=== PATIENT | female | born 1995 | race Caucasian/White ===

== ENCOUNTER 2020-09-05 14:45 | Inpatient (IN) | payer SELFPAY ==
[~2020-09-05] VITALS: Ht 170.2 cm; Wt 81.0 kg
--- NOTE | 2020-09-05 15:43 | RAD ---
Examination: 3 views of the left ankle and left tibia and fibula HISTORY: History of fracture COMPARISON: None available Findings: There is nondisplaced fracture of the medial malleolus with oblique fracture of the lateral malleolus extending superiorly from the ankle joint and minimal displaced fracture of the posterior malleolus extending intra-articularly. Moderate soft tissue swelling identified about the ankle joint. The prox imal and midportion of the tibia and fibula grossly unremarkable. IMPRESSION: Trimalleolar fracture. Electronically signed by: Ganesh Armstrong MD (09/05/2020 3:40 PM) [id number]
[2020-09-05] MEDS ORDERED: MORPHINE SULFATE 10 MG/ML VIAL. IV ONE (16:45)
--- NOTE | 2020-09-05 17:16 | ED.ADGEN ---
Past Medical History Past Medical History: No Pertinent History Past Surgical History: Tonsillectomy, Other Additional Past Surgical Histo: rhinoplasty Smoking Status: Never Smoker Alcohol Use: None General Adult EDM: Chief Complaint: LOWEREXTREMITY INJURY HPI: HPI: Patient is 25-year-old previous healthy female who presents to the emergency room complaining of severe left ankle pain. Patient was playing with some children and running in the grass when her foot slipped and went sideways. She states she try to get up and walk on it and her foot would not bear her weight and her ankle turned sideways. She is having a throbbing pain in her ankle. She denies any numbness. She denies any other injuries. Review of Systems: Review of Systems: Complete ROS is negative unless otherwise documented in HPI Current Medications: Current Medications Medications (Trade) Dose Ordered Sig/Ave Start Time Stop Time Status Last Admin Dose Admin Morphine Sulfate (Morphine Sulfate) 4 mg Q4H PRN 09/05/20 17:15 09/06/20 17:14 UNV Allergies: Allergies: Allergies Coded Allergies Type Severity Reaction Last Updated Verified No Known Drug Allergies 09/05/20 No Physical Exam: PE: General: Awake, alert, NAD. Well Nourished, well hydrated. Cooperative HEENT: Atraumatic, EOMI, PERRL, airway patent, moist oral mucosa, no nasal septal hematoma, no facial crepitus or deformity Neck: Supple, trachea midline, no C-spine tenderness Respiratory: CTA bilaterally, normal effort, no wheezing/crackles, no crepitus CV: RRR, no murmur, cap refill <2, 2+ bilateral radial/DP pulses GI: Soft, nondistended, nontender, no masses MSK: Left ankle deformity, diffuse swelling, no open wounds. 2+ DP pulse, intact sensation distal to injury, intact range of motion, pelvis stable and nontender Skin: Warm, dry, intact Neuro: A&O x3, speech NL, sensory and motor grossly intact, no focal deficits Psych: Normal affect, normal mood, not suicidal or homicidal Current Patient Data: Labs: Laboratory Tests Test 09/05/20 16:25 SARS-CoV-2 Antigen (Rapid) Negative (NEGATIVE) Vital Signs: Vital Signs Date Time Temp Pulse Resp B/P (MAP) Pulse Ox O2 Delivery O2 Flow Rate FiO2 09/05/20 16:55 18 98 09/05/20 14:45 99.1 86 130/71 (90) Room Air 99.1 EKG: EKG: [] Heart Score: C/O Chest Pain: N/A Risk Factors: Risk Factors: DM, Current or recent (<one month) smoker, HTN, HLP, family history of CAD, obesity. Risk Scores: Score 0 - 3: 2.5% MACE over next 6 weeks - Discharge Home Score 4 - 6: 20.3% MACE over next 6 weeks - Admit for Clinical Observation Score 7 - 10: 72.7% MACE over next 6 weeks - Early Invasive Strategies Radiology/Procedures: Radiology/Procedures: [] Course & Med Decision Making: Course & Med Decision Making Pertinent Labs and Imaging studies reviewed. (See chart for details) Patient is a 25-year-old female who presents to the emergency room with left ankle injury. X-ray was done and patient has a nondisplaced trimalleolar fracture. I have discussed the case with Dr. Willis the on-call orthopedic surgeon who would like to do surgery on this tomorrow morning. Patient will be admitted and Covid swab will be done. Dragon Disclaimer: Dragon Disclaimer: This electronic medical record was generated, in whole or in part, using a voice recognition dictation system. Departure Departure Impression: Primary Impression: Trimalleolar fracture of ankle, closed Disposition: ADMITTED INPATIENT Condition: STABLE Referrals: NO PCP (PCP) ANJELICA POWERS MD Sep 05, 2020 17:15
[2020-09-05] MEDS: MORPHINE SULFATE 4 MG/ML VIAL. IV PRN ×2 (20:44→23:08)
[2020-09-05 21:30] VITALS: BP 128/60
[2020-09-05 23:00] VITALS: BP 117/59
[2020-09-06] VITALS (10 sets, daily range): BP systolic 99–117; BP diastolic 54–72
--- NOTE | 2020-09-06 01:29 | NUR ---
Patient arrived to floor at 2119. Report was received from Ramez in the Emergency room. Patient has minimal complaints of pain at this time. Patient resting comfortable in bed at this time. Patient call light placed within reach and bed placed in the lowest position. Will continue to monitor the patient at this time.
[2020-09-06] MEDS: MORPHINE SULFATE 4 MG/ML VIAL. IV PRN (03:12)
[2020-09-06] MEDS ORDERED: MORPHINE SULFATE 2 MG/ML VIAL. IV PRN (06:30)
[2020-09-06] MEDS ORDERED: ONDANSETRON PF 4 MG/2 ML VIAL. IVP PRN (06:30)
[2020-09-06] MEDS: IV NORMAL SALINE 1000ML BAG 1,000 ML IV SCH ×2 (08:35→20:20)
--- NOTE | 2020-09-06 08:41 | PDOC1 ---
History and Physical Date of Admission Date of Admission DATE: 09/06/20 TIME: 08:40 Identification/Chief Complaint Chief Complaint FALL WITH LEFT ANKLE FRACTURE History of Present Illness History of Present Illness 25-year-old previous healthy female who presents to the emergency room complaining of severe left ankle pain. Patient was playing with some children and running in the grass when her foot slipped and went sideways. She states she try to get up and walk on it and her foot would not bear her weight and her ankle turned sideways. She is having a throbbing pain in her ankle. She denies any numbness. She denies any other injuries. Past Medical History Past Medical History Past Medical History Past Medical History Past Medical History: No Pertinent History Past Surgical History: Tonsillectomy, Other Additional Past Surgical Histo: rhinoplasty Smoking Status: Never Smoker Alcohol Use: None FHX HTN Family History Family History: Hypertension Social History Smoke: No ALCOHOL: none Drugs: None Current Problem List Problem List Problems Medical Problems: (1) Trimalleolar fracture of ankle, closed Status: Acute Current Medications Current Medications Current Medications Morphine Sulfate (Morphine Sulfate) 5 mg 1X ONCE IV Last administered on 09/05/20at 16:55; Start 09/05/20 at 16:45; Stop 09/05/20 at 16:49; Status DC Morphine Sulfate (Morphine Sulfate) 4 mg PRN Q4HRS PRN IV PAIN Last administered on 09/06/20at 03:12; Start 09/05/20 at 17:15; Stop 09/06/20 at 06:38; Status DC Sodium Chloride 1,000 ml @ 75 mls/hr [id number] IV ; Start 09/06/20 at 07:00 Morphine Sulfate (Morphine Sulfate) 2 mg PRN Q2HR PRN IV SEVERE PAIN 7-10; Start 09/06/20 at 06:30 Ondansetron HCl (Zofran) 4 mg PRN Q6HRS PRN IVP NAUSEA/VOMITING 1ST CHOICE; Start 09/06/20 at 06:30 Fentanyl Citrate (Fentanyl 2ml Vial) 25 mcg PRN Q5MIN PRN IVP MILD PAIN 1-3; Start 09/06/20 at 08:45; Stop 09/07/20 at 08:44; Status UNV Fentanyl Citrate (Fentanyl 2ml Vial) 50 mcg PRN Q5MIN PRN IVP MODERATE PAIN 4- 6; Start 09/06/20 at 08:45; Stop 09/07/20 at 08:44; Status UNV Morphine Sulfate (Morphine Sulfate) 1 mg PRN Q10MIN PRN IVP SEVERE PAIN 7-10; Start 09/06/20 at 08:45; Stop 09/07/20 at 08:44; Status UNV Ringer's Solution 1,000 ml @ 30 mls/hr Q24H IV ; Start 09/06/20 at 08:45; Stop 09/06/20 at 20:44; Status UNV Hydromorphone HCl (Dilaudid) 0.5 mg PRN Q10MIN PRN IVP SEVERE PAIN 7-10, 2nd CHOICE; Start 09/06/20 at 08:45; Stop 09/07/20 at 08:44; Status UNV Prochlorperazine Edisylate (Compazine) 5 mg PACU PRN PRN IVP NAUSEA, MRX1; Start 09/06/20 at 08:45; Stop 09/07/20 at 08:44; Status UNV Allergies Allergies: Coded Allergies: No Known Drug Allergies (Unverified , 09/05/20) ROS General: No: Chills, Night Sweats, Fatigue, Malaise, Appetite, Other PSYCHOLOGICAL ROS: No: Anxiety, Behavioral Disorder, Concentration difficultie, Decreased libido, Depression, Disorientation, Hallucinations, Hostility, Irritablity, Memory difficulties, Mood Swings, Obsessive thoughts, Physical abuse, Sexual abuse, Sleep disturbances, Suicidal ideation, Other Eyes: No Blurry vision, No Decreased vision, No Double vision, No Dry eyes, No Excessive tearing, No Eye Pain, No Itchy Eyes, No Loss of vision, No Photophobia, No Scotomata, No Uses contacts, No Uses glasses, No Other HEENT: No: Heacaches, Visual Changes, Hearing change, Nasal congestion, Nasal discharge, Oral lesions, Sinus pain, Sore Throat, Epistaxis, Sneezing, Snoring, Tinnitus, Vertigo, Vocal changes, Other ALLERGY AND IMMUNOLOGY: No: Hives, Insect Bite Sensitivity, Itchy/Watery Eyes, Nasal Congestion, Post Nasal Drip, Seasonal Allergies, Other Hematological and Lymphatic: No: Bleeding Problems, Blood Clots, Blood Transfusions, Brusing, Night Sweats, Pallor, Swollen Lymph Nodes, Other ENDOCRINE: No: Breast Changes, Galactorrhea, Hair Pattern Changes, Hot Flashes, Malaise/lethargy, Mood Swings, Palpitations, Polydipsia/polyuria, Skin Changes, Temperature Intolerance, Unexpected Weight Changes, Other Breast: No New/Changing Breast Lumps, No Nipple changes, No Nipple discharge, No Other Respiratory: No: Cough, Hemoptysis, Orthopnea, Pleuritic Pain, Shortness of breath, SOB with excertion, Sputum Changes, Stridor, Tachypnea, Wheezing, Other Cardiovascular: No Chest Pain, No Palpitations, No Orthopnea, No Paroxysmal Noc. Dyspnea, No Edema, No Lt Headedness, No Other Gastrointestinal: No Nausea, No Vomiting, No Abdominal Pain, No Diarrhea, No Constipation, No Melena, No Hematochezia, No Other Genitourinary: No Dysuria, No Frequency, No Incontinence, No Hematuria, No Retention, No Discharge, No Urgency, No Pain, No Flank Pain, No Other, No , No , No , No , No , No , No Musculoskeletal: Yes Gait Disturbance, Yes Joint Pain, Yes Joint Stiffness Neurological: Yes Gait Disturbance; No Behavorial Changes, No Bowel/Bladder ControlChng, No Confusion, No Dizziness, No Headaches, No Impaired Coord/balance, No Memory Loss, No Numbness/Tingling, No Seizures, No Speech Problems, No Tremors, No Visual Changes, No Weakness, No Other Skin: No Dry Skin, No Eczema, No Hair Changes, No Lumps, No Mole Changes, No Mottling, No Nail Changes, No Pruritus, No Rash, No Skin Lesion Changes, No Other, No Acne Physical Exam General: Alert, Oriented X3, Cooperative, No acute distress, mild distress HEENT: Atraumatic, PERRLA, EOMI, Mucous membr. moist/pink Lungs: Clear to auscultation, Normal air movement Heart: S1S2, RRR, no thrills, no gallops, no murmurs Breasts: Not examined Abdomen: Normal bowel sounds, Soft Rectal Exam: not examined PELVIC: Examination not indicated Extremities: No cyanosis, No edema, Other (LEFT ANKLE DRESSING DRY ) Skin: No significant lesion Neuro: Normal speech, Normal tone, Sensation intact, Cranial nerves 3-12 NL Psych/Mental Status: Mental status NL, Mood NL Vitals Vitals Vital Signs Date Time Temp Pulse Resp B/P (MAP) Pulse Ox O2 Delivery O2 Flow Rate FiO2 09/06/20 07:16 97.9 67 18 111/56 (74) 98 Room Air 97.9 Labs Labs Laboratory Tests Test 09/05/20 16:25 SARS-CoV-2 Antigen (Rapid) Negative (NEGATIVE) Laboratory Tests Test 09/05/20 16:25 SARS-CoV-2 Antigen (Rapid) Negative (NEGATIVE) Images Images Operative Note Operative Note Operative Note Date of Procedure: September 06, 2020 Pre-Op Diagnosis: Displaced trimalleolar fracture of left lower leg, initial encounter for closed fracture S82.852A Post-Op Diagnosis: same Procedure: Open treatment of trimalleolar ankle fracture, with internal fixation, medial and lateral malleolus, with fixation of posterior lip, CPT 30336, left ankle Anesthesia Type: General Surgeon: Brandon Willis MD Support Dba: KAMILAH Kumar EBL: 50 mL Specimens Obtained: none Drains: none Complications: none Tourniquet time: minutes Tourniquet pressure: 300 mm Hg Implants: Synthes titanium small fragment 3.5 mm Signed PATIENT: LISETET HARDYACCOUNT: [id number] : 1995 LOCATION: ER AGE: 25 SEX: F EXAM STATUS: REG ER ORD. PHYSICIAN: ANJELICA POWERS MD REASON: fracture PROCEDURE: ANKLE LEFT 3V Examination: 3 views of the left ankle and left tibia and fibula HISTORY: History of fracture COMPARISON: None available Findings: There is nondisplaced fracture of the medial malleolus with oblique fracture of the lateral malleolus extending superiorly from the ankle joint and minimal displaced fracture of the posterior malleolus extending intra-articularly. Moderate soft tissue swelling identified about the ankle joint. The proximal and midportion of the tibia and fibula grossly unremarkable. IMPRESSION: Trimalleolar fracture. Electronically signed by: Ganesh Armstrong MD (09/05/2020 3:40 PM) [id number] DICTATED and SIGNED BY: GANESH ARMSTRONG MD DATE: 09/05/20 [id number] VTE Prophylaxis Ordered VTE Prophylaxis Devices: Contraindicated VTE Pharmacological Prophylaxi: Yes Assessment/Plan Assessment/Plan IMPRESSION: Mechanical fall on uneven surface Trimalleolar fracture. plan== ADMIT to OR IV PAIN CONTROL ORTHO CONSULT PT/OT D/W RN Justifications for Admission Other Justification HARLEY RODRIGUEZ MD Sep 06, 2020 08:41
[2020-09-06] MEDS ORDERED: PROCHLORPERAZINE 10 MG/2 ML VIAL. IVP PRN (08:45)
[2020-09-06] MEDS ORDERED: fentaNYL PF VIAL 100 MCG/2 ML VIAL IVP PRN ×2 (08:45)
[2020-09-06] MEDS ORDERED: HYDROmorphone 2 MG/ML VIAL IVP PRN (08:45)
[2020-09-06] MEDS ORDERED: IV RINGERS,LACTATED 1000ML 1,000 ML IV SCH (08:45)
--- NOTE | 2020-09-06 09:47 | PDOC2 ---
CONSULT Date of Consult Date of Consult DATE: 09/06/20 TIME: 09:47 Reason for Consult Reason for Consult: Left ankle fracture Identification/Chief Complaint Chief Complaint Left ankle fracture Source Source: Chart review, Patient History of Present Illness Reason for Visit: This 25-year-old young lady was running outdoors, playing with some kids at her grandfather's house, and tripped and felt her ankle go sideways. She felt things break and several snaps, and the ankle was distorted. She immediately was taken to the emergency room and x-rays show a trimalleolar ankle fracture. She was admitted for surgical stabilization. Past Medical History Past Medical History She had a remote right ankle growth plate fracture and she used crutches at that time but was treated in a cast. She has insomnia for which she uses medical marijuana. Past Surgical History Past Surgical History: No pertinent history Family History Family History Her father has hypertension. A grandmother has a genetic liver disease. A different relative has blockages in the superior and inferior vena cava Social History Social History She lives with her boyfriend and several other roommates. She does not have children. She did serve in the . No Lives: Roommate Current Problem List Problem List Problems Medical Problems: (1) Trimalleolar fracture of ankle, closed Status: Acute Current Medications Current Medications Current Medications Morphine Sulfate (Morphine Sulfate) 5 mg 1X ONCE IV Last administered on 09/05/20at 16:55; Start 09/05/20 at 16:45; Stop 09/05/20 at 16:49; Status DC Morphine Sulfate (Morphine Sulfate) 4 mg PRN Q4HRS PRN IV PAIN Last administered on 09/06/20at 03:12; Start 09/05/20 at 17:15; Stop 09/06/20 at 06:38; Status DC Sodium Chloride 1,000 ml @ 75 mls/hr [id number] IV Last administered on 09/06/20at 08:35; Start 09/06/20 at 07:00 Morphine Sulfate (Morphine Sulfate) 2 mg PRN Q2HR PRN IV SEVERE PAIN 7-10 Last administered on 09/06/20at 08:55; Start 09/06/20 at 06:30 Ondansetron HCl (Zofran) 4 mg PRN Q6HRS PRN IVP NAUSEA/VOMITING 1ST CHOICE Last administered on 09/06/20at 08:35; Start 09/06/20 at 06:30 Fentanyl Citrate (Fentanyl 2ml Vial) 25 mcg PRN Q5MIN PRN IVP MILD PAIN 1-3; Start 09/06/20 at 08:45; Stop 09/07/20 at 08:44 Fentanyl Citrate (Fentanyl 2ml Vial) 50 mcg PRN Q5MIN PRN IVP MODERATE PAIN 4- 6; Start 09/06/20 at 08:45; Stop 09/07/20 at 08:44 Morphine Sulfate (Morphine Sulfate) 1 mg PRN Q10MIN PRN IVP SEVERE PAIN 7-10; Start 09/06/20 at 08:45; Stop 09/07/20 at 08:44 Ringer's Solution 1,000 ml @ 30 mls/hr Q24H IV ; Start 09/06/20 at 08:45; Stop 09/06/20 at 20:44 Hydromorphone HCl (Dilaudid) 0.5 mg PRN Q10MIN PRN IVP SEVERE PAIN 7-10, 2nd CHOICE; Start 09/06/20 at 08:45; Stop 09/07/20 at 08:44 Prochlorperazine Edisylate (Compazine) 5 mg PACU PRN PRN IVP NAUSEA, MRX1; Start 09/06/20 at 08:45; Stop 09/07/20 at 08:44 Allergies Allergies: Coded Allergies: No Known Drug Allergies (Unverified , 09/05/20) ROS General: No: Chills, Night Sweats PSYCHOLOGICAL ROS: YES: Other (Insomnia) Eyes: No Double vision HEENT: No: Heacaches, Sore Throat Hematological and Lymphatic: No: Blood Clots Respiratory: No: Cough, Shortness of breath, SOB with excertion Cardiovascular: No Chest Pain, No Palpitations, No Edema Gastrointestinal: No Nausea, No Vomiting, No Diarrhea, No Constipation Genitourinary: No Dysuria, No Hematuria Musculoskeletal: Yes Joint Pain Neurological: No Bowel/Bladder ControlChng Physical Exam General: Alert, Cooperative HEENT: Atraumatic Lungs: Normal air movement Heart: Regular rate Abdomen: Soft Extremities: Other (Patient is unable to weight bear on the left ankle. The splint is intact. The overall alignment is swollen and slightly grossly enlarged at the joint with the possible slight deformity despite the nondisplaced appearance radiographically. Light touch sensation is intact. Capillary refill is normal at the toes. She can move the toes up and down.) Neuro: Normal speech, Sensation intact MUSCULOSKELETAL: Abnormal exam of left (ankle as above) Vitals VITALS Vital Signs Date Time Temp Pulse Resp B/P (MAP) Pulse Ox O2 Delivery O2 Flow Rate FiO2 09/06/20 07:16 97.9 67 18 111/56 (74) 98 Room Air 97.9 Labs Labs Laboratory Tests Test 09/05/20 16:25 SARS-CoV-2 Antigen (Rapid) Negative (NEGATIVE) Laboratory Tests Test 09/05/20 16:25 SARS-CoV-2 Antigen (Rapid) Negative (NEGATIVE) Images Images Report reviewed and images independently reviewed. The medial malleolus appears fractured but is nondisplaced. The lateral malleolus is fractured and displaced 3-4 mm posteriorly. The posterior malleolus is fractured and also displaced 3-4 mm. [facility] [address] [place] [address] IMAGING REPORT Signed PATIENT: LISETTE HARDY ACCOUNT: [id number] : 1995 LOCATION: ER AGE: 25 SEX: F EXAM STATUS: REG ER ORD. PHYSICIAN: ANJELICA POWERS MD REASON: fracture PROCEDURE: ANKLE LEFT 3V Examination: 3 views of the left ankle and left tibia and fibula HISTORY: History of fracture COMPARISON: None available Findings: There is nondisplaced fracture of the medial malleolus with oblique fracture of the lateral malleolus extending superiorly from the ankle joint and minimal displaced fracture of the posterior malleolus extending intra-articularly. Moderate soft tissue swelling identified about the ankle joint. The proximal and midportion of the tibia and fibula grossly unremarkable. IMPRESSION: Trimalleolar fracture. Electronically signed by: Ganesh Armstrong MD (09/05/2020 3:40 PM) [id number] Assessment/Plan Assessment/Plan I spoke to her about options for treatment. She has an unstable ankle fracture with a trimalleolar pattern and 3-4 mm of displacement. Displaced trimalleolar fracture of left lower leg S82.852 Nonsurgical treatment would likely be difficult to maintain good position, and even if it healed in the current position would likely leave some symptoms due to the 3 to 4 mm of displacement. Surgical stabilization is preferable in this situation. I suspect an anatomic reduction could be obtained especially of the lateral malleolus, and most likely the posterior malleolus fragment will reduce with ligamentotaxis as the lateral malleolus is reduced. I spoke to her about possible fixation of the trimalleolar posterior fragment sometimes done with an anterior to posterior screw, and the increased risks of neurovascular injury with that type of surgery. The chance that I would need to fix the posterior malleolus is low. I spoke to her about the potential risks of infection, blood clots, need for hardware removal, neurovascular injury and numbness in the foot, weakness of the foot, or other potential surgical or anesthetic complications. She does have a nickel allergy and so we can use titanium small fragment set. I do not think she needs syndesmosis fixation. All of her questions about surgery were answered and she would desires to proceed. We discussed the surgical stabilization using photographs from the Internet and showed her the plate and screw likely application. MICHAEL SQUIRES MD Sep 06, 2020 09:47
[2020-09-06 09:52] LABS: BASO % 0 % (0-3); EOS # 0.1 x10^3/uL (0.0-0.7); EOS % 1 % (0-3); HEMOGLOBIN 13.9 g/dL (12.0-15.5); LYMPH % 12 % (24-48); MEAN CORPUSCULAR HEMOGLOBIN 31 pg (25-35); MEAN CORPUSCULAR HGB CONC 34 g/dL (31-37); MEAN CORPUSCULAR VOLUME 91 fL (79-100); MONO # 0.5 x10^3/uL (0.0-1.1); MONO % 6 % (0-9); NEUT # 6.6 x10^3/uL (1.8-7.7); NEUT % 80 % (31-73); PLATELET COUNT 168 x10^3/uL (140-400); RED BLOOD COUNT 4.51 x10^6/uL (3.50-5.40); RED CELL DISTRIBUTION WIDTH 13.5 % (11.5-14.5); WHITE BLOOD COUNT 8.2 x10^3/uL (4.0-11.0)
[2020-09-06] MEDS ORDERED: BUPIVACAINE-EPI 0.25% 30 ML VIAL KIT. ONE (09:55)
[2020-09-06 10:14] LABS: ALBUMIN 3.9 g/dL (3.4-5.0); ALBUMIN/GLOBULIN RATIO 1.2 (1.0-1.7); CALCIUM 9.1 mg/dL (8.5-10.1); CREATININE 0.8 mg/dL (0.6-1.0); POTASSIUM 4.3 mmol/L (3.5-5.1); TOTAL BILIRUBIN 0.9 mg/dL (0.2-1.0); TOTAL PROTEIN 7.2 g/dL (6.4-8.2)
[2020-09-06 10:24] LABS: U PREG PATIENT NEGATIVE (NEG)
[2020-09-06] MEDS ORDERED: LIDOCAINE 2% PF 5 ML VIAL. ONE (10:37)
[2020-09-06] MEDS ORDERED: DEXAMETHASONE SOD PHOS 4 MG/ML VIAL ONE (10:37)
[2020-09-06] MEDS ORDERED: ONDANSETRON PF 4 MG/2 ML VIAL. ONE (10:37)
[2020-09-06] MEDS ORDERED: PROPOFOL 10 MG/ML (20ML) VIAL. IV ONE (10:37)
[2020-09-06] MEDS ORDERED: fentaNYL PF VIAL 100 MCG/2 ML VIAL ONE ×2 (10:52→11:14)
[2020-09-06] MEDS ORDERED: SEVOFLURANE 61 TO 120 MINUTES. IH ONE (10:52)
[2020-09-06] MEDS ORDERED: MIDAZOLAM HCL/PF 2 MG/2 ML VIAL. ONE (10:55)
--- NOTE | 2020-09-06 11:26 | NUR ---
SW following. Discussed with RN, pt from home, room air, NPO, rapid COVID-19 negative. Ortho following - planning on surgery, unsure of when. Med Assist following for self pay status. SW will continue to follow.
[2020-09-06] MEDS ORDERED: KETOROLAC 30 MG/ML VIAL. ONE (11:28)
--- NOTE | 2020-09-06 11:58 | PDOC4 ---
Operative Note Operative Note Date of Procedure: September 06, 2020 Pre-Op Diagnosis: Displaced trimalleolar fracture of left lower leg, initial encounter for closed fracture S82.852A Post-Op Diagnosis: same Procedure: Open treatment of trimalleolar ankle fracture, with internal fixation, medial and lateral malleolus, with fixation of posterior lip, CPT 48773, left ankle Anesthesia Type: General Surgeon: Michael Willis MD Surgical Elastic Knitter: KAMILAH Kumar EBL: 50 mL Specimens Obtained: none Drains: none Complications: none Tourniquet time: 91 minutes Tourniquet pressure: 300 mm Hg Implants: Synthes titanium small fragment 3.5 mm INDICATIONS FOR PROCEDURE: The patient is a 25-year-old with a displaced unstable left ankle fracture. The patient and I discussed the risks and benefits of operative treatment and the option of nonsurgical treatment with close followup. The fracture seems markedly unstable based on her description, and nonoperative treatment would have a high chance of malunion. Surgical fixation likely will give a better long-term outcome. We talked about the risks of the operative fixation such as the risks of bleeding, infection, blood clots, need for hardware removal, stiffness or other potential surgical or anesthetic complications. All of the patient's questions about surgery were answered and she desired to proceed. Written consent was obtained. She reports a nickel allergy, so a titanium set was used rather than my usual stainless steel fixation. PROCEDURE IN DETAIL: The patient was identified in the preoperative holding area. The correct left lower extremity was marked by me. The patient was taken to the operating room, where a general anesthetic was used. Preoperative antibiotics were given intravenously. A timeout procedure was performed. A padded tourniquet was used on the upper left thigh. The limb was prepared in sterile fashion with ChloraPrep solution, and sterile drapes were applied with a sterile glove over the toes. An Esmarch bandage was used to exsanguinate the limb and the tourniquet was inflated. There is marked swelling of the ankle vince nt, and severe instability on examination under anesthesia. There are some tiny clear serous filled fracture blisters posterior lateral, away from the areas of the incisions. There is some ecchymosis but there is no evidence of compartment syndrome nor of any hemorrhagic blisters. The direct lateral approach to the distal fibula was used. Sharp dissection was used and Bovie electrocautery was used as needed for hemostasis. The fracture was easily identified and exposed. The fracture is displaced, and the bone quality is soft, porotic and poor, which is unusual considering her young age. The fracture was gapped open with traction, and fracture hematoma was cleared with curettes, rongeurs and irrigation. I then used longitudinal traction and internal rotation to help reduce the fracture, and a lobster claw bone clamp was used to now reduce the fracture. An interfragmentary lag screw was placed using a threaded hole and a gliding hole, across the fracture site to stabilize it, so that the bone clamp could be removed. I then applied a nonlocking 8 hole one- third tubular plate on the posterolateral fibula. I applied cortical screws p roximally and cancellous screws distally for rigid fixation across the fracture site to stabilize it. Her bone quality is not as good as I would expect for a 25-year-old and I used some cancellous screws where I would normally use cortical screws. Satisfactory reduction and fixation was obtained of the fibula which was confirmed using the image intensifier. The medial malleolus was approached using the direct medial curvilinear approach. Sharp dissection was used and Bovie electrocautery was used for hemostasis. The medial malleolus fracture was identified, and was displaced and unstable. Fracture hematoma was cleared with curettes rongeurs and irrigation. The joint was irrigated. A 2.5 mm drill bit was used for preliminary stabilization. A second 2.5 mm drill bit was used to prevent rotation. The small image intensifier was used to confirm hardware position and fracture reduction. Each of the 2.5 millimeter screws was replaced with a 4.0 mm partially-threaded cancellous screw, 40 mm in length. Images at this point showed that the posterior malleolar fragment was further displaced, and would require fixation. The posterior fragment is congruent with the medial malleolus fragment and reduction of the posterior malleolus was impaired by the more posterior of the two medial malleolar screws. I removed the more posterior of the 40 mm medial screws. I further exposed the posterior malleolar fragment from the medial side and needed to extend the incision proximally. The tibialis posterior tendon was carefully retracted. The fracture of the posterior malleolus was identified. This is a comminuted posterior malleolar fragment which was unstable and allowed the joint to sublux and it required stabilization. The posterior malleolar fragment was held reduced, and then 3 screws were used in the posterior malleolar fragment from posterior to anterior to stabilize it. Again the poor bone quality was noted, and a washer was used for one of the screws to stabilize the bone. Final images were reviewed. The small image intensifier was used throughout the case and all the images were interpreted intraoperatively by me. The synde smosis remains stable and aligned normally. Fracture fixation of the lateral malleolus, medial malleolus, and posterior malleolus all appear satisfactory, and the joint and fractures appear reduced and stabilized anatomically. Copious saline irrigation was used. The tourniquet was released. Bovie electrocautery was used for hemostasis. Local anesthetic 30 mL of 0.25% bupivacaine with epinephrine with epinephrine was injected into the skin edges. The incision was closed in layers with #2-0 Vicryl and #3-0 Prolene. Xeroform and a sterile dressing and a splint were applied. There were no apparent complications. MICHAEL WILLIS MD Sep 06, 2020 11:58
[2020-09-06] MEDS ORDERED: SEVOFLURANE > 120 MINUTES. IH ONE (12:10)
[2020-09-06] MEDS ORDERED: oxyCODONE/APAP 5/325 1 TAB TABLET PO PRN (12:15)
[2020-09-06] MEDS ORDERED: MORPHINE SULFATE 2 MG/ML VIAL. ONE (13:10)
[2020-09-06] MEDS: MORPHINE SULFATE 2 MG/ML VIAL. IVP PRN ×2 (13:11→13:25)
[2020-09-06] MEDS ORDERED: ALBUTEROL SULFATE 2.5 MG/3 ML NEBU. NEB PRN (14:30)
[2020-09-06] MEDS ORDERED: SODIUM PHOSPHATES 19/7GM 133 ML ENEMA. PR PRN (14:30)
[2020-09-06] MEDS ORDERED: MAG HYDROX/ALUMINUM HYD/SIMETH 30 ML ORAL.SUSP PO PRN (14:30)
[2020-09-06] MEDS ORDERED: ACETAMINOPHEN 325 MG TABLET. PO PRN (14:30)
[2020-09-06] MEDS ORDERED: guaiFENesin ORAL 200 MG/10 ML LIQUID. PO PRN (14:30)
[2020-09-06] MEDS ORDERED: DOCUSATE SODIUM 100 MG CAPSULE. PO PRN (14:30)
[2020-09-06] MEDS ORDERED: LORazepam 0.5 MG TABLET PO PRN (14:30)
[2020-09-06] MEDS ORDERED: 0.9 % SODIUM CHLORIDE 10 ML DISP.SYRIN. IV PRN (14:30)
[2020-09-06] MEDS ORDERED: ASPIRIN ENTERIC COATED 325 MG TABLET.DR. PO SCH (21:00)
[2020-09-06] MEDS: oxyCODONE/APAP 5/325 1 TAB TABLET PO PRN (23:16)
[2020-09-07 02:59] VITALS: BP 106/69
[2020-09-07 07:00] VITALS: BP 112/62
[2020-09-07] MEDS: oxyCODONE/APAP 5/325 1 TAB TABLET PO PRN (08:53)
[2020-09-07] MEDS ORDERED: CHOLECALCIFEROL (VITAMIN D3) 1,000 UNIT TABLET PO SCH (09:00)
[2020-09-07] MEDS ORDERED: ENOXAPARIN 40 MG/0.4 ML SYRINGE. SQ SCH (09:00)
[2020-09-07] MEDS: IV NORMAL SALINE 1000ML BAG 1,000 ML IV SCH (09:40)
--- NOTE | 2020-09-07 09:55 | PDOC ---
PROGRESS NOTES Date of Service: DATE: 09/07/20 TIME: 09:54 Chief Complaint Chief Complaint VTE Prophylaxis Ordered VTE Prophylaxis Devices: Contraindicated VTE Pharmacological Prophylaxi: Yes Assessment/Plan Assessment/Plan IMPRESSION: Mechanical fall on uneven surface Trimalleolar fracture. POD # 1 plan== ADMIT to OR IV PAIN CONTROL ORTHO CONSULT PT/OT 6- DOING WELL WITH CRUTCH TRAINING, WOULD LIKE TO GO HOME TODAY D/C PLANNING 34 MIN D/W RN Justifications for Admission Justifications for Admission Other Justification History of Present Illness History of Present Illness Identification/Chief Complaint Chief Complaint FALL WITH LEFT ANKLE FRACTURE History of Present Illness History of Present Illness 25-year-old previous healthy female who presents to the emergency room complaining of severe left ankle pain. Patient was playing with some children and running in the grass when her foot slipped and went sideways. She states she try to get up and walk on it and her foot would not bear her weight and her ankle turned sideways. She is having a throbbing pain in her ankle. She denies any numbness. She denies any other injuries. Past Medical History Past Medical History Past Medical History Past Medical History Past Medical History: No Pertinent History Past Surgical History: Tonsillectomy, Other Additional Past Surgical Histo: rhinoplasty Smoking Status: Never Smoker Alcohol Use: None FHX HTN Family History Family History: Hypertension Social History Smoke: No ALCOHOL: none Drugs: None Current Problem List Problem List Problems Medical Problems: (1) Trimalleolar fracture of ankle, closed Status: Acute Current Medications Current Medications Current Medications Morphine Sulfate (Morphine Sulfate) 5 mg 1X ONCE IV Last administered on 09/05/20at 16:55; Start 09/05/20 at 16:45; Stop 09/05/20 at 16:49; Status DC Morphine Sulfate (Morphine Sulfate) 4 mg PRN Q4HRS PRN IV PAIN Last administered on 09/06/20at 03:12; Start 09/05/20 at 17:15; Stop 09/06/20 at 06:38; Status DC Sodium Chloride 1,000 ml @ 75 mls/hr [id number] IV ; Start 09/06/20 at 07:00 Morphine Sulfate (Morphine Sulfate) 2 mg PRN Q2HR PRN IV SEVERE PAIN 7-10; Start 09/06/20 at 06:30 Ondansetron HCl (Zofran) 4 mg PRN Q6HRS PRN IVP NAUSEA/VOMITING 1ST CHOICE; Start 09/06/20 at 06:30 Fentanyl Citrate (Fentanyl 2ml Vial) 25 mcg PRN Q5MIN PRN IVP MILD PAIN 1-3; Start 09/06/20 at 08:45; Stop 09/07/20 at 08:44; Status UNV Fentanyl Citrate (Fentanyl 2ml Vial) 50 mcg PRN Q5MIN PRN IVP MODERATE PAIN 4- 6; Start 09/06/20 at 08:45; Stop 09/07/20 at 08:44; Status UNV Morphine Sulfate (Morphine Sulfate) 1 mg PRN Q10MIN PRN IVP SEVERE PAIN 7-10; Start 09/06/20 at 08:45; Stop 09/07/20 at 08:44; Status UNV Ringer's Solution 1,000 ml @ 30 mls/hr Q24H IV ; Start 09/06/20 at 08:45; Stop 09/06/20 at 20:44; Status UNV Hydromorphone HCl (Dilaudid) 0.5 mg PRN Q10MIN PRN IVP SEVERE PAIN 7-10, 2nd CHOICE; Start 09/06/20 at 08:45; Stop 09/07/20 at 08:44; Status UNV Prochlorperazine Edisylate (Compazine) 5 mg PACU PRN PRN IVP NAUSEA, MRX1; Start 09/06/20 at 08:45; Stop 09/07/20 at 08:44; Status UNV Allergies Allergies: Coded Allergies: No Known Drug Allergies (Unverified , 09/05/20) ROS General: No: Chills, Night Sweats, Fatigue, Malaise, Appetite, Other PSYCHOLOGICAL ROS: No: Anxiety, Behavioral Disorder, Concentration difficultie, Decreased libido, Depression, Disorientation, Hallucinations, Hostility, Ir ritablity, Memory difficulties, Mood Swings, Obsessive thoughts, Physical abuse, Sexual abuse, Sleep disturbances, Suicidal ideation, Other Eyes: No Blurry vision, No Decreased vision, No Double vision, No Dry eyes, No Excessive tearing, No Eye Pain, No Itchy Eyes, No Loss of vision, No Photophobia, No Scotomata, No Uses contacts, No Uses glasses, No Other HEENT: No: Heacaches, Visual Changes, Hearing change, Nasal congestion, Nasal discharge, Oral lesions, Sinus pain, Sore Throat, Epistaxis, Sneezing, Snoring, Tinnitus, Vertigo, Vocal changes, Other ALLERGY AND IMMUNOLOGY: No: Hives, Insect Bite Sensitivity, Itchy/Watery Eyes, Nasal Congestion, Post Nasal Drip, Seasonal Allergies, Other Hematological and Lymphatic: No: Bleeding Problems, Blood Clots, Blood Transfusions, Brusing, Night Sweats, Pallor, Swollen Lymph Nodes, Other ENDOCRINE: No: Breast Changes, Galactorrhea, Hair Pattern Changes, Hot Flashes, Malaise/lethargy, Mood Swings, Palpitations, Polydipsia/polyuria, Skin Changes, Temperature Intolerance, Unexpected Weight Changes, Other Breast: No New/Changing Breast Lumps, No Nipple changes, No Nipple discharge, No Other Respiratory: No: Cough, Hemoptysis, Orthopnea, Pleuritic Pain, Shortness of breath, SOB with excertion, Sputum Changes, Stridor, Tachypnea, Wheezing, Other Cardiovascular: No Chest Pain, No Palpitations, No Orthopnea, No Paroxysmal Noc. Dyspnea, No Edema, No Lt Headedness, No Other Gastrointestinal: No Nausea, No Vomiting, No Abdominal Pain, No Diarrhea, No Constipation, No Melena, No Hematochezia, No Other Genitourinary: No Dysuria, No Frequency, No Incontinence, No Hematuria, No Retention, No Discharge, No Urgency, No Pain, No Flank Pain, No Other, No , No , No , No , No , No , No Musculoskeletal: Yes Gait Disturbance, Yes Joint Pain, Yes Joint Stiffness Neurological: Yes Gait Disturbance; No Behavorial Changes, No Bowel/Bladder ControlChng, No Confusion, No Dizziness, No Headaches, No Impaired Coord/balance, No Memory Loss, No Numbness/Tingling, No Seizures, No Speech Problems, No Tremors, No Visual Changes, No Weakness, No Other Skin: No Dry Skin, No Eczema, No Hair Changes, No Lumps, No Mole Changes, No Mottling, No Nail Changes, No Pruritus, No Rash, No Skin Lesion Changes, No Other, No Acne Vitals Vitals Vital Signs Date Time Temp Pulse Resp B/P (MAP) Pulse Ox O2 Delivery O2 Flow Rate FiO2 09/07/20 08:53 99 Room Air 10.0 09/07/20 07:00 97.8 58 17 112/62 (79) 97.8 Physical Exam Physical Exam Operative Note Operative Note Date of Procedure: September 06, 2020 Pre-Op Diagnosis: Displaced trimalleolar fracture of left lower leg, initial encounter for closed fracture S82.852A Post-Op Diagnosis: same Procedure: Open treatment of trimalleolar ankle fracture, with internal fixation, medial and lateral malleolus, with fixation of posterior lip, CPT 23865, left ankle Anesthesia Type: General Surgeon: Brandon Willis MD Quantitative Software Engineer: KAMILAH Kumar EBL: 50 mL Specimens Obtained: none Drains: none Complications: none Tourniquet time: minutes Tourniquet pressure: 300 mm Hg Implants: Synthes titanium small fragment 3.5 mm INDICATIONS FOR PROCEDURE: The patient is a 25-year-old with a displaced unstable left ankle fracture. General: Alert, Oriented X3, Cooperative, No acute distress Heart: Regular rate, Normal S1, Normal S2, No murmurs Lungs: Clear Abdomen: Normal bowel sounds, Soft Extremities: No clubbing, No cyanosis, No edema, Other (LEFT ANKLE DRESSING DRY ) Skin: No rashes, No significant lesion Labs LABS Laboratory Tests Test 09/07/20 04:25 25-Hydroxy Vitamin D Total 17.8 ng/mL (30-100) Assessment and Plan Assessmemt and Plan Problems Medical Problems: (1) Disorder of bone Status: Acute (2) Displaced trimalleolar fracture of left lower leg, initial encounter for closed fracture Status: Acute (3) Trimalleolar fracture of ankle, closed Status: Acute * Sit to Stand Goal 3 - Ambulation Assistance Required * Independent Goal 3 - Ambulation Distance * 50' Goal 3 - Ambulation Device * Crutches Goal 4 - Stairs Assistance Required * Stand-by Assistance Goal 4 - Number of Stairs * 2-4 Goal 4 - Device on Stairs * Crutches * Rail on Right * Rail on Left Goal 5 * Indep with HEP Goal 6 * Car simulation transfers with SBA. Treatment Plan * Therapeutic Exercise * Bed Mobility Training * Transfer training * Gait Training * Dynamic Balance Training Frequency of Treatment Expected * 10 visits/week Duration of Treatment Expected * 1 week Discharge Recommendations * Home with Assistance Discharge Recommendation - DME * Crutches Discharge Recommendation Comments * TBD Comment Review of Relevant I have reviewed the following items ingrid (where applicable) has been applied. Labs Laboratory Tests Test 09/05/20 16:25 09/06/20 09:22 09/06/20 09:25 09/07/20 04:25 Coronavirus (COVID-19)(PCR) Negative (NEGATIVE) SARS-CoV-2 Antigen (Rapid) Negative (NEGATIVE) Urine Test Negative (NEG) White Blood Count 8.2 x10^3/uL (4.0-11.0) Red Blood Count 4.51 x10^6/uL (3.50-5.40) Hemoglobin 13.9 g/dL (12.0-15.5) Hematocrit 41.0 % (36.0-47.0) Mean Corpuscular Volume 91 fL (79-100) Mean Corpuscular Hemoglobin 31 pg (25-35) Mean Corpuscular Hemoglobin Concent 34 g/dL (31-37) Red Cell Distribution Width 13.5 % (11.5-14.5) Platelet Count 168 x10^3/uL (140-400) Neutrophils (%) (Auto) 80 % (31-73) Lymphocytes (%) (Auto) 12 % (24-48) Monocytes (%) (Auto) 6 % (0-9) Eosinophils (%) (Auto) 1 % (0-3) Basophils (%) (Auto) 0 % (0-3) Neutrophils # (Auto) 6.6 x10^3/uL (1.8-7.7) Lymphocytes # (Auto) 1.0 x10^3/uL (1.0-4.8) Monocytes # (Auto) 0.5 x10^3/uL (0.0-1.1) Eosinophils # (Auto) 0.1 x10^3/uL (0.0-0.7) Basophils # (Auto) 0.0 x10^3/uL (0.0-0.2) Sodium Level 142 mmol/L (136-145) Potassium Level 4.3 mmol/L (3.5-5.1) Chloride Level 107 mmol/L (98-107) Carbon Dioxide Level 25 mmol/L (21-32) Anion Gap 10 (6-14) Blood Urea Nitrogen 9 mg/dL (7-20) Creatinine 0.8 mg/dL (0.6-1.0) Estimated GFR (Cockcroft-Gault) 86.0 BUN/Creatinine Ratio 11 (6-20) Glucose Level 89 mg/dL (70-99) Calcium Level 9.1 mg/dL (8.5-10.1) Total Bilirubin 0.9 mg/dL (0.2-1.0) Aspartate Amino Transf (AST/SGOT) 18 U/L (15-37) Alanine Aminotransferase (ALT/SGPT) 16 U/L (14-59) Alkaline Phosphatase 75 U/L (46-116) Total Protein 7.2 g/dL (6.4-8.2) Albumin 3.9 g/dL (3.4-5.0) Albumin/Globulin Ratio 1.2 (1.0-1.7) 25-Hydroxy Vitamin D Total 17.8 ng/mL (30-100) Laboratory Tests Test 09/07/20 04:25 25-Hydroxy Vitamin D Total 17.8 ng/mL (30-100) Medications Current Medications Morphine Sulfate (Morphine Sulfate) 5 mg 1X ONCE IV Last administered on 09/05/20at 16:55; Start 09/05/20 at 16:45; Stop 09/05/20 at 16:49; Status DC Morphine Sulfate (Morphine Sulfate) 4 mg PRN Q4HRS PRN IV PAIN Last administered on 09/06/20at 03:12; Start 09/05/20 at 17:15; Stop 09/06/20 at 06:38; Status DC Sodium Chloride 1,000 ml @ 75 mls/hr [id number] IV Last administered on 09/06/20at 08:35; Start 09/06/20 at 07:00 Morphine Sulfate (Morphine Sulfate) 2 mg PRN Q2HR PRN IV SEVERE PAIN 7-10 Last administered on 09/06/20at 08:55; Start 09/06/20 at 06:30 Ondansetron HCl (Zofran) 4 mg PRN Q6HRS PRN IVP NAUSEA/VOMITING 1ST CHOICE Last administered on 09/06/20at 08:35; Start 09/06/20 at 06:30 Fentanyl Citrate (Fentanyl 2ml Vial) 25 mcg PRN Q5MIN PRN IVP MILD PAIN 1-3; Start 09/06/20 at 08:45; Stop 09/06/20 at 23:13; Status DC Fentanyl Citrate (Fentanyl 2ml Vial) 50 mcg PRN Q5MIN PRN IVP MODERATE PAIN 4- 6; Start 09/06/20 at 08:45; Stop 09/06/20 at 23:13; Status DC Morphine Sulfate (Morphine Sulfate) 1 mg PRN Q10MIN PRN IVP SEVERE PAIN 7-10 Last administered on 09/06/20at 13:25; Start 09/06/20 at 08:45; Stop 09/06/20 at 23:13; Status DC Ringer's Solution 1,000 ml @ 30 mls/hr Q24H IV Last administered on 09/06/20at 10:00; Start 09/06/20 at 08:45; Stop 09/06/20 at 20:44; Status DC Hydromorphone HCl (Dilaudid) 0.5 mg PRN Q10MIN PRN IVP SEVERE PAIN 7-10, 2nd CHOICE; Start 09/06/20 at 08:45; Stop 09/06/20 at 23:13; Status DC Prochlorperazine Edisylate (Compazine) 5 mg PACU PRN PRN IVP NAUSEA, MRX1; Start 09/06/20 at 08:45; Stop 09/06/20 at 23:13; Status DC Bupivacaine HCl/ Epinephrine Bitart (Sensorcain-Epi 0.25% Kit) 30 ml STK-MED ONCE .ROUTE Last administered on 09/06/20at 10:45; Start 09/06/20 at 09:55; Stop 09/06/20 at 09:56; Status DC Cefazolin Sodium/ Dextrose 50 ml @ 100 mls/hr 1X PREOP PRN IV SEE COMMENTS Last administered on 09/06/20at 10:35; Start 09/06/20 at 10:00; Stop 09/06/20 at 12:17; Status DC Propofol (Diprivan) 200 mg STK-MED ONCE IV ; Start 09/06/20 at 10:37; Stop 09/06/20 at 10:37; Status DC Dexamethasone Sodium Phosphate (Decadron) 4 mg STK-MED ONCE .ROUTE ; Start 09/06/20 at 10:37; Stop 09/06/20 at 10:37; Status DC Lidocaine HCl (Lidocaine Pf 2% Vial) 5 ml STK-MED ONCE .ROUTE ; Start 09/06/20 at 10:37; Stop 09/06/20 at 10:37; Status DC Ondansetron HCl (Zofran) 4 mg STK-MED ONCE .ROUTE ; Start 09/06/20 at 10:37; Stop 09/06/20 at 10:37; Status DC Fentanyl Citrate (Fentanyl 2ml Vial) 100 mcg STK-MED ONCE .ROUTE ; Start 09/06/20 at 10:52; Stop 09/06/20 at 10:53; Status DC Sevoflurane (Ultane) 60 ml STK-MED ONCE IH ; Start 09/06/20 at 10:52; Stop 09/06/20 at 10:53; Status DC Midazolam HCl (Versed) 2 mg STK-MED ONCE .ROUTE ; Start 09/06/20 at 10:55; Stop 09/06/20 at 10:55; Status DC Fentanyl Citrate (Fentanyl 2ml Vial) 100 mcg STK-MED ONCE .ROUTE ; Start 09/06/20 at 11:14; Stop 09/06/20 at 11:14; Status DC Ketorolac Tromethamine (Toradol 30mg Vial) 30 mg STK-MED ONCE .ROUTE ; Start 09/06/20 at 11:28; Stop 09/06/20 at 11:28; Status DC Aspirin (Ecotrin) 325 mg QHS PO Last administered on 09/06/20at 20:28; Start 09/06/20 at 21:00 Vitamin D (Vitamin D3) 1,000 unit DAILY PO Last administered on 09/07/20at 08:53; Start 09/07/20 at 09:00 Oxycodone/ Acetaminophen (Percocet 5/325) 1 tab PRN Q4HRS PRN PO MILD PAIN 1-3 Last administered on 09/07/20at 08:53; Start 09/06/20 at 12:00 Oxycodone/ Acetaminophen (Percocet 5/325) 2 tab PRN Q4HRS PRN PO MODERATE-JEROME RE PAIN; Start 09/06/20 at 12:15 Sevoflurane (Ultane) 90 ml STK-MED ONCE IH ; Start 09/06/20 at 12:10; Stop 09/06/20 at 12:10; Status DC Morphine Sulfate (Morphine Sulfate) 2 mg STK-MED ONCE .ROUTE ; Start 09/06/20 at 13:10; Stop 09/06/20 at 13:10; Status DC Sodium Chloride (Normal Saline Flush) 3 ml QSHIFT PRN IV AFTER MEDS AND BLOOD DRAWS; Start 09/06/20 at 14:30 Acetaminophen (Tylenol) 650 mg PRN Q4HRS PRN PO TEMP OVER 100.4F OR MILD PAIN; Start 09/06/20 at 14:30 Al Hydroxide/Mg Hydroxide (Mylanta Plus Xs) 30 ml PRN DAILY PRN PO HEARTBURN / GAS; Start 09/06/20 at 14:30 Sodium Monofluorophosphate (Fleet Adult) 133 ml PRN DAILY PRN VA CONSTIPATION; Start 09/06/20 at 14:30 Docusate Sodium (Colace) 100 mg PRN BID PRN PO HARD STOOLS; Start 09/06/20 at 1 4:30 Albuterol Sulfate (Ventolin Neb Soln) 2.5 mg PRN Q4HRS PRN NEB SHORTNESS OF BREATH; Start 09/06/20 at 14:30 Guaifenesin (Robitussin) 200 mg PRN Q4HRS PRN PO COUGH; Start 09/06/20 at 14:30 Lorazepam (Ativan) 0.5 mg PRN Q4HRS PRN PO ANXIETY / AGITATION; Start 09/06/20 at 14:30 Enoxaparin Sodium (Lovenox 40mg Syringe) 40 mg Q24H SQ Last administered on 09/07/20at 08:54; Start 09/07/20 at 09:00 Vitals/I & O Vital Sign - Last 24 Hours 09/06/20 09/06/20 09/06/20 09/06/20 10:09 12:23 12:23 12:39 Temp 98.2 98.5 98.2 98.5 Pulse 70 101 70 Resp 24 14 13 B/P (MAP) 112/79 116/58 101/64 Pulse Ox 98 98 98 O2 Delivery Mask Room Air Room Air O2 Flow Rate 10 10 09/06/20 09/06/20 09/06/20 09/06/20 12:54 13:09 13:25 13:45 Temp 98.5 98.5 Pulse 78 86 60 63 Resp 30 21 B/P (MAP) 116/66 113/71 108/72 (84) 104/63 (77) Pulse Ox 98 98 100 100 O2 Delivery Room Air Room Air Room Air Room Air 09/06/20 09/06/20 09/06/20 09/06/20 13:56 14:00 14:15 15:00 Pulse 61 51 54 B/P (MAP) 99/59 (72) 102/54 (70) 102/59 (73) Pulse Ox 98 96 97 O2 Delivery Room Air Room Air Room Air Room Air 09/06/20 09/06/20 09/06/20 09/06/20 17:25 19:00 20:00 22:56 Temp 98.5 98.0 98.5 98.0 Pulse 56 89 64 Resp 18 18 B/P (MAP) 107/60 (76) 109/72 (84) 116/55 (75) Pulse Ox 99 94 98 O2 Delivery Room Air Room Air Room Air Room Air 09/06/20 09/07/20 09/07/20 09/07/20 23:16 00:28 02:59 07:00 Temp 98.0 97.8 98.0 97.8 Pulse 83 58 Resp 14 14 18 17 B/P (MAP) 106/69 (81) 112/62 (79) Pulse Ox 98 98 97 99 O2 Delivery Room Air Room Air Room Air Room Air 09/07/20 08:53 Pulse Ox 99 O2 Delivery Room Air O2 Flow Rate 10.0 Intake and Output 09/06/20 09/06/20 09/07/20 15:00 23:00 07:00 Intake Total 1050 ml 1240 ml Output Total 50 ml Balance 1000 ml 1240 ml Justicifation of Admission Dx: Justifications for Admission: Justification of Admission Dx: Yes Fracture: Fracture HARLEY RODIRGUEZ MD Sep 07, 2020 09:55
[2020-09-07 11:00] VITALS: BP 122/87
--- NOTE | 2020-09-07 11:22 | NUR ---
SW following. Discussed with RN, pt from home, room air, regular diet, COVID-19 negative. Pt had surgery 09/06/20. Med Assist following for self pay status. Anticipate possible discharge home with self care today. SW will continue to follow.
[2020-09-07] MEDS ORDERED: oxyCODONE/APAP 5/325 1 TAB TABLET PO ONE (11:30)
--- NOTE | 2020-09-07 11:44 | PDOC3 ---
Discharge Summary Date of Admission: Sep 05, 2020 Date of Discharge: Sep 07, 2020 Follow-Up: 3-5 days Admitting Diagnosis comment: CONSULTS ORTHO PROCEDURE OPERATIVE REPAIR F/U DR WILLIS 1 WEEK PROGNOSIS GOOD WITH COMPLIANCE D/C CONDITION GOOD D/C MEDS SEE MAY DISCHARGE DX Assessment/Plan IMPRESSION: Mechanical fall on uneven surface Trimalleolar fracture. POD # 1 plan== ADMIT to OR IV PAIN CONTROL ORTHO CONSULT PT/OT 6- DOING WELL WITH CRUTCH TRAINING, WOULD LIKE TO GO HOME TODAY D/C PLANNING 34 MIN D/W RN Justifications for Admission Justifications for Admission Other Justification History of Present Illness History of Present Illness Identification/Chief Complaint Chief Complaint FALL WITH LEFT ANKLE FRACTURE History of Present Illness History of Present Illness 25-year-old previous healthy female who presents to the emergency room comp laining of severe left ankle pain. Patient was playing with some children and running in the grass when her foot slipped and went sideways. She states she try to get up and walk on it and her foot would not bear her weight and her ankle turned sideways. She is having a throbbing pain in her ankle. She denies any numbness. She denies any other injuries. Past Medical History Past Medical History Past Medical History Past Medical History Past Medical History: No Pertinent History Past Surgical History: Tonsillectomy, Other Additional Past Surgical Histo: rhinoplasty Smoking Status: Never Smoker Alcohol Use: None FHX HTN Family History Family History: Hypertension Social History Smoke: No ALCOHOL: none Drugs: None Current Problem List Problem List Problems Medical Problems: (1) Trimalleolar fracture of ankle, closed Status: Acute Current Medications Current Medications Current Medications Morphine Sulfate (Morphine Sulfate) 5 mg 1X ONCE IV Last administered on at 16:55; Start 09/05/20 at 16:45; Stop 09/05/20 at 16:49; Status DC Morphine Sulfate (Morphine Sulfate) 4 mg PRN Q4HRS PRN IV PAIN Last administered on 09/06/20at 03:12; Start 09/05/20 at 17:15; Stop 09/06/20 at 06:38; Status DC Sodium Chloride 1,000 ml @ 75 mls/hr [id number] IV ; Start 09/06/20 at 07:00 Morphine Sulfate (Morphine Sulfate) 2 mg PRN Q2HR PRN IV SEVERE PAIN 7-10; Start 09/06/20 at 06:30 Ondansetron HCl (Zofran) 4 mg PRN Q6HRS PRN IVP NAUSEA/VOMITING 1ST CHOICE; Start 09/06/20 at 06:30 Fentanyl Citrate (Fentanyl 2ml Vial) 25 mcg PRN Q5MIN PRN IVP MILD PAIN 1-3; Start 09/06/20 at 08:45; Stop 09/07/20 at 08:44; Status UNV Fentanyl Citrate (Fentanyl 2ml Vial) 50 mcg PRN Q5MIN PRN IVP MODERATE PAIN 4- 6; Start 09/06/20 at 08:45; Stop 09/07/20 at 08:44; Status UNV Morphine Sulfate (Morphine Sulfate) 1 mg PRN Q10MIN PRN IVP SEVERE PAIN 7-10; Start 09/06/20 at 08:45; Stop 09/07/20 at 08:44; Status UNV Ringer's Solution 1,000 ml @ 30 mls/hr Q24H IV ; Start 09/06/20 at 08:45; Stop 09/06/20 at 20:44; Status UNV Hydromorphone HCl (Dilaudid) 0.5 mg PRN Q10MIN PRN IVP SEVERE PAIN 7-10, 2nd CHOICE; Start 09/06/20 at 08:45; Stop 09/07/20 at 08:44; Status UNV Prochlorperazine Edisylate (Compazine) 5 mg PACU PRN PRN IVP NAUSEA, MRX1; Start 09/06/20 at 08:45; Stop 09/07/20 at 08:44; Status UNV Allergies Allergies: Coded Allergies: No Known Drug Allergies (Unverified , 09/05/20) ROS General: No: Chills, Night Sweats, Fatigue, Malaise, Appetite, Other PSYCHOLOGICAL ROS: No: Anxiety, Behavioral Disorder, Concentration difficultie, Decreased libido, Depression, Disorientation, Hallucinations, Hostility, Irritablity, Memory difficulties, Mood Swings, Obsessive thoughts, Physical abuse, Sexual abuse, Sleep disturbances, Suicidal ideation, Other Eyes: No Blurry vision, No Decreased vision, No Double vision, No Dry eyes, No Excessive tearing, No Eye Pain, No Itchy Eyes, No Loss of vision, No Photophobia, No Scotomata, No Uses contacts, No Uses glasses, No Other HEENT: No: Heacaches, Visual Changes, Hearing change, Nasal congestion, Nasal discharge, Oral lesions, Sinus pain, Sore Throat, Epistaxis, Sneezing, Snoring, Tinnitus, Vertigo, Vocal changes, Other ALLERGY AND IMMUNOLOGY: No: Hives, Insect Bite Sensitivity, Itchy/Watery Eyes, Nasal Congestion, Post Nasal Drip, Seasonal Allergies, Other Hematological and Lymphatic: No: Bleeding Problems, Blood Clots, Blood Transfusions, Brusing, Night Sweats, Pallor, Swollen Lymph Nodes, Other ENDOCRINE: No: Breast Changes, Galactorrhea, Hair Pattern Changes, Hot Flashes, Malaise/lethargy, Mood Swings, Palpitations, Polydipsia/polyuria, Skin Changes, Temperature Intolerance, Unexpected Weight Changes, Other Breast: No New/Changing Breast Lumps, No Nipple changes, No Nipple discharge, No Other Respiratory: No: Cough, Hemoptysis, Orthopnea, Pleuritic Pain, Shortness of breath, SOB with excertion, Sputum Changes, Stridor, Tachypnea, Wheezing, Other Cardiovascular: No Chest Pain, No Palpitations, No Orthopnea, No Paroxysmal Noc. Dyspnea, No Edema, No Lt Headedness, No Other Gastrointestinal: No Nausea, No Vomiting, No Abdominal Pain, No Diarrhea, No Constipation, No Melena, No Hematochezia, No Other Genitourinary: No Dysuria, No Frequency, No Incontinence, No Hematuria, No Retention, No Discharge, No Urgency, No Pain, No Flank Pain, No Other, No , No , No , No , No , No , No Musculoskeletal: Yes Gait Disturbance, Yes Joint Pain, Yes Joint Stiffness Neurological: Yes Gait Disturbance; No Behavorial Changes, No Bowel/Bladder ControlChng, No Confusion, No Dizziness, No Headaches, No Impaired Coord/balance, No Memory Loss, No Numbness/Tingling, No Seizures, No Speech Problems, No Tremors, No Visual Changes, No Weakness, No Other Skin: No Dry Skin, No Eczema, No Hair Changes, No Lumps, No Mole Changes, No Mottling, No Nail Changes, No Pruritus, No Rash, No Skin Lesion Changes, No Other, No Acne Vitals Vitals Vital Signs Date Time Temp Pulse Resp B/P (MAP) Pulse Ox O2 Delivery O2 Flow Rate FiO2 09/07/20 08:53 99 Room Air 10.0 09/07/20 07:00 97.8 58 17 112/62 (79) 97.8 Physical Exam Physical Exam Operative Note Operative Note Date of Procedure: September 06, 2020 Pre-Op Diagnosis: Displaced trimalleolar fracture of left lower leg, initial encounter for closed fracture S82.852A Post-Op Diagnosis: same Procedure: Open treatment of trimalleolar ankle fracture, with internal fixation, medial and lateral malleolus, with fixation of posterior lip, CPT 92838, left ankle Anesthesia Type: General Surgeon: Brandon Willis MD Patient Coordinator Front Desk: KAMILAH Kumar EBL: 50 mL Specimens Obtained: none Drains: none Complications: none Tourniquet time: minutes Tourniquet pressure: 300 mm Hg Implants: Synthes titanium small fragment 3.5 mm INDICATIONS FOR PROCEDURE: The patient is a 25-year-old with a displaced unstable left ankle fracture. General: Alert, Oriented X3, Cooperative, No acute distress Heart: Regular rate, Normal S1, Normal S2, No murmurs Lungs: Clear Abdomen: Normal bowel sounds, Soft Extremities: No clubbing, No cyanosis, No edema, Other (LEFT ANKLE DRESSING DRY ) Skin: No rashes, No significant lesion Labs LABS Laboratory Tests Test 09/07/20 04:25 25-Hydroxy Vitamin D Total 17.8 ng/mL (30-100) Assessment and Plan Assessmemt and Plan Problems Medical Problems: (1) Disorder of bone Status: Acute (2) Displaced trimalleolar fracture of left lower leg, initial encounter for closed fracture Status: Acute (3) Trimalleolar fracture of ankle, closed Status: Acute * Sit to Stand Goal 3 - Ambulation Assistance Required * Independent Goal 3 - Ambulation Distance * 50' Goal 3 - Ambulation Device * Crutches Goal 4 - Stairs Assistance Required * Stand-by Assistance Goal 4 - Number of Stairs * 2-4 Goal 4 - Device on Stairs * Crutches * Rail on Right * Rail on Left Goal 5 * Indep with HEP Goal 6 * Car simulation transfers with SBA. Treatment Plan * Therapeutic Exercise * Bed Mobility Training * Transfer training * Gait Training * Dynamic Balance Training Frequency of Treatment Expected * 10 visits/week Duration of Treatment Expected * 1 week Discharge Recommendations * Home with Assistance Discharge Recommendation - DME * Crutches Discharge Recommendation Comments * TBD FINAL DIAGNOSIS Problems Medical Problems: (1) Disorder of bone Status: Acute (2) Displaced trimalleolar fracture of left lower leg, initial encounter for closed fracture Status: Acute (3) Trimalleolar fracture of ankle, closed Status: Acute Brief Hospital Course Ms. Frey is a 25 old [sex] who presented with [TRIMALLEOLAR FX ] CONDITION AT DISCHARGE: Improved Discharge Medications Current Medications Morphine Sulfate (Morphine Sulfate) 5 mg 1X ONCE IV Last administered on 09/05/20at 16:55; Start 09/05/20 at 16:45; Stop 09/05/20 at 16:49; Status DC Morphine Sulfate (Morphine Sulfate) 4 mg PRN Q4HRS PRN IV PAIN Last administered on 09/06/20at 03:12; Start 09/05/20 at 17:15; Stop 09/06/20 at 06:38; Status DC Sodium Chloride 1,000 ml @ 75 mls/hr [id number] IV Last administered on 09/06/20at 08:35; Start 09/06/20 at 07:00 Morphine Sulfate (Morphine Sulfate) 2 mg PRN Q2HR PRN IV SEVERE PAIN 7-10 Last administered on 09/06/20at 08:55; Start 09/06/20 at 06:30 Ondansetron HCl (Zofran) 4 mg PRN Q6HRS PRN IVP NAUSEA/VOMITING 1ST CHOICE Last administered on 09/06/20at 08:35; Start 09/06/20 at 06:30 Fentanyl Citrate (Fentanyl 2ml Vial) 25 mcg PRN Q5MIN PRN IVP MILD PAIN 1-3; Start 09/06/20 at 08:45; Stop 09/06/20 at 23:13; Status DC Fentanyl Citrate (Fentanyl 2ml Vial) 50 mcg PRN Q5MIN PRN IVP MODERATE PAIN 4- 6; Start 09/06/20 at 08:45; Stop 09/06/20 at 23:13; Status DC Morphine Sulfate (Morphine Sulfate) 1 mg PRN Q10MIN PRN IVP SEVERE PAIN 7-10 Last administered on 09/06/20at 13:25; Start 09/06/20 at 08:45; Stop 09/06/20 at 23:13; Status DC Ringer's Solution 1,000 ml @ 30 mls/hr Q24H IV Last administered on 09/06/20at 10:00; Start 09/06/20 at 08:45; Stop 09/06/20 at 20:44; Status DC Hydromorphone HCl (Dilaudid) 0.5 mg PRN Q10MIN PRN IVP SEVERE PAIN 7-10, 2nd CHOICE; Start 09/06/20 at 08:45; Stop 09/06/20 at 23:13; Status DC Prochlorperazine Edisylate (Compazine) 5 mg PACU PRN PRN IVP NAUSEA, MRX1; Start 09/06/20 at 08:45; Stop 09/06/20 at 23:13; Status DC Bupivacaine HCl/ Epinephrine Bitart (Sensorcain-Epi 0.25% Kit) 30 ml STK-MED ONCE .ROUTE Last administered on 09/06/20at 10:45; Start 09/06/20 at 09:55; Stop 09/06/20 at 09:56; Status DC Cefazolin Sodium/ Dextrose 50 ml @ 100 mls/hr 1X PREOP PRN IV SEE COMMENTS Last administered on 09/06/20at 10:35; Start 09/06/20 at 10:00; Stop 09/06/20 at 12:17; Status DC Propofol (Diprivan) 200 mg STK-MED ONCE IV ; Start 09/06/20 at 10:37; Stop 09/06/20 at 10:37; Status DC Dexamethasone Sodium Phosphate (Decadron) 4 mg STK-MED ONCE .ROUTE ; Start 09/06/20 at 10:37; Stop 09/06/20 at 10:37; Status DC Lidocaine HCl (Lidocaine Pf 2% Vial) 5 ml STK-MED ONCE .ROUTE ; Start 09/06/20 at 10:37; Stop 09/06/20 at 10:37; Status DC Ondansetron HCl (Zofran) 4 mg STK-MED ONCE .ROUTE ; Start 09/06/20 at 10:37; Stop 09/06/20 at 10:37; Status DC Fentanyl Citrate (Fentanyl 2ml Vial) 100 mcg STK-MED ONCE .ROUTE ; Start 09/06/20 at 10:52; Stop 09/06/20 at 10:53; Status DC Sevoflurane (Ultane) 60 ml STK-MED ONCE IH ; Start 09/06/20 at 10:52; Stop 09/06/20 at 10:53; Status DC Midazolam HCl (Versed) 2 mg STK-MED ONCE .ROUTE ; Start 09/06/20 at 10:55; Stop 09/06/20 at 10:55; Status DC Fentanyl Citrate (Fentanyl 2ml Vial) 100 mcg STK-MED ONCE .ROUTE ; Start 09/06/20 at 11:14; Stop 09/06/20 at 11:14; Status DC Ketorolac Tromethamine (Toradol 30mg Vial) 30 mg STK-MED ONCE .ROUTE ; Start 09/06/20 at 11:28; Stop 09/06/20 at 11:28; Status DC Aspirin (Ecotrin) 325 mg QHS PO Last administered on 09/06/20at 20:28; Start 09/06/20 at 21:00 Vitamin D (Vitamin D3) 1,000 unit DAILY PO Last administered on 09/07/20at 08:53; Start 09/07/20 at 09:00 Oxycodone/ Acetaminophen (Percocet 5/325) 1 tab PRN Q4HRS PRN PO MILD PAIN 1-3 Last administered on 09/07/20at 08:53; Start 09/06/20 at 12:00 Oxycodone/ Acetaminophen (Percocet 5/325) 2 tab PRN Q4HRS PRN PO MODERATE- SEVERE PAIN; Start 09/06/20 at 12:15 Sevoflurane (Ultane) 90 ml STK-MED ONCE IH ; Start 09/06/20 at 12:10; Stop 09/06/20 at 12:10; Status DC Morphine Sulfate (Morphine Sulfate) 2 mg STK-MED ONCE .ROUTE ; Start 09/06/20 at 13:10; Stop 09/06/20 at 13:10; Status DC Sodium Chloride (Normal Saline Flush) 3 ml QSHIFT PRN IV AFTER MEDS AND BLOOD DRAWS; Start 09/06/20 at 14:30 Acetaminophen (Tylenol) 650 mg PRN Q4HRS PRN PO TEMP OVER 100.4F OR MILD PAIN; Start 09/06/20 at 14:30 Al Hydroxide/Mg Hydroxide (Mylanta Plus Xs) 30 ml PRN DAILY PRN PO HEARTBURN / GAS; Start 09/06/20 at 14:30 Sodium Monofluorophosphate (Fleet Adult) 133 ml PRN DAILY PRN AL CONSTIPATION; Start 09/06/20 at 14:30 Docusate Sodium (Colace) 100 mg PRN BID PRN PO HARD STOOLS; Start 09/06/20 at 14:30 Albuterol Sulfate (Ventolin Neb Soln) 2.5 mg PRN Q4HRS PRN NEB SHORTNESS OF BREATH; Start 09/06/20 at 14:30 Guaifenesin (Robitussin) 200 mg PRN Q4HRS PRN PO COUGH; Start 09/06/20 at 14:30 Lorazepam (Ativan) 0.5 mg PRN Q4HRS PRN PO ANXIETY / AGITATION; Start 09/06/20 at 14:30 Enoxaparin Sodium (Lovenox 40mg Syringe) 40 mg Q24H SQ Last administered on 09/07/20at 08:54; Start 09/07/20 at 09:00 Oxycodone/ Acetaminophen (Percocet 5/325) 1 tab 1X ONCE PO ; Start 09/07/20 at 11:30; Stop 09/07/20 at 11:32; Status DC Vital Signs Vital Signs Date Time Temp Pulse Resp B/P (MAP) Pulse Ox O2 Delivery O2 Flow Rate FiO2 09/07/20 11:31 99 Room Air 10.0 09/07/20 07:00 97.8 58 17 112/62 (79) 97.8 Labs Laboratory Tests Test 09/05/20 16:25 09/06/20 09:22 09/06/20 09:25 09/07/20 04:25 Coronavirus (COVID-19)(PCR) Negative (NEGATIVE) SARS-CoV-2 Antigen (Rapid) Negative (NEGATIVE) Urine Test Negative (NEG) White Blood Count 8.2 x10^3/uL (4.0-11.0) Red Blood Count 4.51 x10^6/uL (3.50-5.40) Hemoglobin 13.9 g/dL (12.0-15.5) Hematocrit 41.0 % (36.0-47.0) Mean Corpuscular Volume 91 fL (79-100) Mean Corpuscular Hemoglobin 31 pg (25-35) Mean Corpuscular Hemoglobin Concent 34 g/dL (31-37) Red Cell Distribution Width 13.5 % (11.5-14.5) Platelet Count 168 x10^3/uL (140-400) Neutrophils (%) (Auto) 80 % (31-73) Lymphocytes (%) (Auto) 12 % (24-48) Monocytes (%) (Auto) 6 % (0-9) Eosinophils (%) (Auto) 1 % (0-3) Basophils (%) (Auto) 0 % (0-3) Neutrophils # (Auto) 6.6 x10^3/uL (1.8-7.7) Lymphocytes # (Auto) 1.0 x10^3/uL (1.0-4.8) Monocytes # (Auto) 0.5 x10^3/uL (0.0-1.1) Eosinophils # (Auto) 0.1 x10^3/uL (0.0-0.7) Basophils # (Auto) 0.0 x10^3/uL (0.0-0.2) Sodium Level 142 mmol/L (136-145) Potassium Level 4.3 mmol/L (3.5-5.1) Chloride Level 107 mmol/L (98-107) Carbon Dioxide Level 25 mmol/L (21-32) Anion Gap 10 (6-14) Blood Urea Nitrogen 9 mg/dL (7-20) Creatinine 0.8 mg/dL (0.6-1.0) Estimated GFR (Cockcroft-Gault) 86.0 BUN/Creatinine Ratio 11 (6-20) Glucose Level 89 mg/dL (70-99) Calcium Level 9.1 mg/dL (8.5-10.1) Total Bilirubin 0.9 mg/dL (0.2-1.0) Aspartate Amino Transf (AST/SGOT) 18 U/L (15-37) Alanine Aminotransferase (ALT/SGPT) 16 U/L (14-59) Alkaline Phosphatase 75 U/L (46-116) Total Protein 7.2 g/dL (6.4-8.2) Albumin 3.9 g/dL (3.4-5.0) Albumin/Globulin Ratio 1.2 (1.0-1.7) 25-Hydroxy Vitamin D Total 17.8 ng/mL (30-100) Laboratory Tests Test 09/07/20 04:25 25-Hydroxy Vitamin D Total 17.8 ng/mL (30-100) Allergies Allergies Coded Allergies Type Severity Reaction Last Updated Verified No Known Drug Allergies 09/05/20 No Disposition/Orders: D/C to Home Justicifation of Admission Dx: Justifications for Admission: Justification of Admission Dx: Yes Fracture: Fracture HARLEY RODRIGUEZ MD Sep 07, 2020 11:44
[2020-09-07] MEDS ORDERED: DOCU-153 PO (11:47)
[2020-09-07] MEDS ORDERED: ACET325T21 PO (11:47)
[2020-09-07] MEDS ORDERED: CHOL10004 PO (11:47)
[2020-09-07] MEDS ORDERED: OXYC1TAB15 PO ×2 (11:47→11:53)
[2020-09-07] MEDS ORDERED: ASPI325T11 PO (11:47)
--- NOTE | 2020-09-07 11:49 | DISCH ---
DISCHARGE INSTRUCTIONS Condition on Discharge Condition on Discharge: Stable Activity After Discharge Activity Instructions for Disc: Activity as tolerated, Progressive ambulation Lifting Instructions after Dis: No heavy lifting, No pulling or pushing Driving Instructions after Dis: Do not drive Weight Bearing Status after Di: Partial weight bearing Diet after Discharge Diet after Discharge: Regular Liquid Texture: Thin Liquid Checks after Discharge Checks after discharge: Check blood press - daily Contacting the DRDianne after DC Call your doctor for: If your condition worsens Follow-Up Follow up with: SEE DR SQUIRES 1 WEEK Treatment/Equipment after DC Adaptive Equipment Issued: HARLEY Bennett MD Sep 07, 2020 11:48
--- NOTE | 2020-09-07 13:25 | PDOC ---
PROGRESS NOTES Date of Service DATE: 09/07/20 TIME: 13:23 Subjective Subjective Doing well. Objective Vital Signs Vital Signs Date Time Temp Pulse Resp B/P (MAP) Pulse Ox O2 Delivery O2 Flow Rate FiO2 09/07/20 11:41 99 Room Air 10.0 09/07/20 11:00 98.5 61 18 122/87 (99) 98.5 Physical Exam Dressing bloody. Splint intact. Outer dressing changed. Labs Laboratory Tests Test 09/05/20 16:25 09/06/20 09:22 09/06/20 09:25 09/07/20 04:25 Coronavirus (COVID-19)(PCR) Negative (NEGATIVE) SARS-CoV-2 Antigen (Rapid) Negative (NEGATIVE) Urine Test Negative (NEG) White Blood Count 8.2 x10^3/uL (4.0-11.0) Red Blood Count 4.51 x10^6/uL (3.50-5.40) Hemoglobin 13.9 g/dL (12.0-15.5) Hematocrit 41.0 % (36.0-47.0) Mean Corpuscular Volume 91 fL (79-100) Mean Corpuscular Hemoglobin 31 pg (25-35) Mean Corpuscular Hemoglobin Concent 34 g/dL (31-37) Red Cell Distribution Width 13.5 % (11.5-14.5) Platelet Count 168 x10^3/uL (140-400) Neutrophils (%) (Auto) 80 % (31-73) Lymphocytes (%) (Auto) 12 % (24-48) Monocytes (%) (Auto) 6 % (0-9) Eosinophils (%) (Auto) 1 % (0-3) Basophils (%) (Auto) 0 % (0-3) Neutrophils # (Auto) 6.6 x10^3/uL (1.8-7.7) Lymphocytes # (Auto) 1.0 x10^3/uL (1.0-4.8) Monocytes # (Auto) 0.5 x10^3/uL (0.0-1.1) Eosinophils # (Auto) 0.1 x10^3/uL (0.0-0.7) Basophils # (Auto) 0.0 x10^3/uL (0.0-0.2) Sodium Level 142 mmol/L (136-145) Potassium Level 4.3 mmol/L (3.5-5.1) Chloride Level 107 mmol/L (98-107) Carbon Dioxide Level 25 mmol/L (21-32) Anion Gap 10 (6-14) Blood Urea Nitrogen 9 mg/dL (7-20) Creatinine 0.8 mg/dL (0.6-1.0) Estimated GFR (Cockcroft-Gault) 86.0 BUN/Creatinine Ratio 11 (6-20) Glucose Level 89 mg/dL (70-99) Calcium Level 9.1 mg/dL (8.5-10.1) Total Bilirubin 0.9 mg/dL (0.2-1.0) Aspartate Amino Transf (AST/SGOT) 18 U/L (15-37) Alanine Aminotransferase (ALT/SGPT) 16 U/L (14-59) Alkaline Phosphatase 75 U/L (46-116) Total Protein 7.2 g/dL (6.4-8.2) Albumin 3.9 g/dL (3.4-5.0) Albumin/Globulin Ratio 1.2 (1.0-1.7) 25-Hydroxy Vitamin D Total 17.8 ng/mL (30-100) Laboratory Tests Test 09/07/20 04:25 25-Hydroxy Vitamin D Total 17.8 ng/mL (30-100) Assessment Assessment POD#1 ORIF trimalleolar ankle fracture Plan Plan of Alf today. Office follow up EC-ASA 325 mgs po daily for 30 days for DVT prophylaxis. Needs vitamin D supplement for hypovitaminosis D. Justicifation of Admission Dx: Justifications for Admission: Justification of Admission Dx: Yes Fracture: Fracture MICHAEL SQUIRES MD Sep 07, 2020 13:25
[2020-09-07 15:00] VITALS: BP 122/64
--- NOTE | 2020-09-07 19:07 | NUR ---
Discharge Note: LISETTE HARDY MERIDIAN Discharge instructions and discharge home medications reviewed with Patient and a copy given. All questions have been answered and understanding verbalized. The following instructions and handouts were given: Diet, activity, medication list and follow up instructions provided to patient. Discontinued lines and drains: Peripheral IV discontinued and catheter intact. Patient discharged to Home or Self Care with Significant Other via Wheelchair
== END 2020-09-07 15:55 | disposition home or self-care (01) | DRG 494 ==
LOC: ER 14:45 → ED HOLD 18:02 → 4 NORTH 21:20
PROVIDERS: ADMIT Internal Medicine; ATTEND Internal Medicine
PROC: 0QSK04Z Reposition Left Fibula with Internal Fixation Device, Open Approach (ICD-10-PCS; 2020-09-06)
PROC: 0QSH04Z Reposition Left Tibia with Internal Fixation Device, Open Approach (ICD-10-PCS; principal; 2020-09-06 12:35)
DX: S82.852A Displaced trimalleolar fracture of left lower leg, initial encounter for closed fracture (principal); G47.00 Insomnia, unspecified; Z20.822 Contact with and (suspected) exposure to COVID-19; W01.0XXA Fall on same level from slipping, tripping and stumbling without subsequent striking against object, initial encounter; Z82.49 Family history of ischemic heart disease and other diseases of the circulatory system; Z79.899 Other long term (current) drug therapy; Z91.048 Other nonmedicinal substance allergy status; Y93.89 Activity, other specified; Y92.89 Other specified places as the place of occurrence of the external cause; Y99.8 Other external cause status
CPT/HCPCS: 36415; 73590; 73610; 80053; 81025; 82306; 85025; 87426; 94640; 96361; 96374; A4930; A6253; A6402; A6449; A6450; A6455; C1713; J0690; J1100; J1650; J1885; J2250; J2270; J2405; J2704; J3010; J7030; J7120; U0003; 97116-GP; 99285-25; G0378